=== PATIENT | male | born 1970 | race Caucasian/White ===

== ENCOUNTER 2022-10-22 02:52 | Emergency (ER) | payer OTHER ==
[~2022-10-22] VITALS: Ht 165.1 cm; Wt 78.0 kg
[~2022-10-22 02:52] MED LIST: METF-1211
[2022-10-22 03:00] VITALS: TEMP 98.3
[2022-10-22 03:51] LABS: BASOPHILS % (AUTO) 1.2 % (0.0-2.0); EOSINOPHILS % (AUTO) 8.5 % (1.0-6.0); HEMATOCRIT 39.6 % (41-53); HEMOGLOBIN 12.8 g/dL (13.5-17.5); LYMPHOCYTES # (AUTO) 1.8 K/uL (1.0-4.8); LYMPHOCYTES % (AUTO) 20.8 % (22.0-44.0); MEAN CORPUSCULAR HEMOGLOBIN 28.9 pg (26.0-34.0); MEAN CORPUSCULAR HGB CONC 32.4 G/dL (31.0-37.0); MEAN CORPUSCULAR VOLUME 89 fL (80-100); MONOCYTES # (AUTO) 0.9 K/uL (0.1-1.0); MONOCYTES % (AUTO) 10.7 % (2.0-9.0); NEUTROPHILS # (AUTO) 5.2 K/uL (1.8-7.7); NEUTROPHILS % (AUTO) 58.8 % (40.0-70.0); PLATELET COUNT (AUTO) 242 K/uL (150-450); RED BLOOD CELL COUNT(AUTO) 4.44 MIL/uL (4.50-5.90); RED CELL DISTRIBUTION WIDTH 15.5 % (11.5-14.5)
[2022-10-22 03:54] LABS: CALCIUM, TOTAL 8.8 mg/dL (8.8-10.5); CREATININE 1.56 mg/dL (0.60-1.30); POTASSIUM 4.6 mmol/L (3.5-5.1)
[2022-10-22 04:01] LABS: ALBUMIN 2.8 g/dL (3.4-5.0); BILIRUBIN,TOTAL 0.8 mg/dL (0.1-1.0); TOTAL PROTEIN, SERUM 9.1 g/dL (6.4-8.2)
[2022-10-22] MEDS ORDERED: CLIN-142 PO (06:40)
[2022-10-22] MEDS ORDERED: CLINDAMYCIN HCL 150 MG CAPSULE PO ONE (06:45)
[2022-10-22 06:59] VITALS: BP 144/75; PULSE 85; RESP 16
== END 2022-10-22 07:09 | disposition home or self-care (01) ==
LOC: EMS 02:55
DX: F15.10 Other stimulant abuse, uncomplicated (principal); L03.116 Cellulitis of left lower limb; E11.9 Type 2 diabetes mellitus without complications; F17.210 Nicotine dependence, cigarettes, uncomplicated
CPT/HCPCS: 99285; 71045; 80053; 83880; 84484; 85025; 36415; 93005; G0480

== ENCOUNTER 2023-01-04 18:36 | Emergency (ER) | payer OTHER ==
[~2023-01-04] VITALS: Ht 172.7 cm; Wt 77.3 kg
[~2023-01-04 18:36] MED LIST changes: +CLIN-142 PO
[2023-01-04 18:39] VITALS: TEMP 98.8
[2023-01-04 20:00] VITALS: BP 129/90; PULSE 85; RESP 20
[2023-01-04] MEDS ORDERED: LIDOCAINE 1% 10 ML VIAL SQ ONE (20:45)
[2023-01-04] MEDS ORDERED: BACI28.410 TP (21:39)
[2023-01-04] MEDS ORDERED: IBUP-1554 PO (21:39)
== END 2023-01-04 21:52 | disposition home or self-care (01) ==
LOC: EMS 18:37
DX: S61.210A Laceration without foreign body of right index finger without damage to nail, initial encounter (principal); E11.9 Type 2 diabetes mellitus without complications; F17.210 Nicotine dependence, cigarettes, uncomplicated; W25.XXXA Contact with sharp glass, initial encounter; Y93.89 Activity, other specified; Y92.89 Other specified places as the place of occurrence of the external cause; Y99.8 Other external cause status
CPT/HCPCS: 99282; 12002; J3490

== ENCOUNTER 2023-01-22 16:24 | Emergency (ER) | payer OTHER ==
[~2023-01-22] VITALS: Ht 172.7 cm; Wt 86.4 kg
[~2023-01-22 16:24] MED LIST changes: +BACI28.410 TP; +IBUP-1554 PO
[2023-01-22 16:31] VITALS: BP 124/78; PULSE 78; RESP 16; TEMP 98.4
== END 2023-01-22 17:04 | disposition home or self-care (01) ==
LOC: EMS 16:24
DX: S61.210D Laceration without foreign body of right index finger without damage to nail, subsequent encounter (principal); E11.9 Type 2 diabetes mellitus without complications; F17.210 Nicotine dependence, cigarettes, uncomplicated; Z48.02 Encounter for removal of sutures; X58.XXXD Exposure to other specified factors, subsequent encounter
CPT/HCPCS: 82962; 99282